=== PATIENT | male | born 1975 | race Caucasian/White ===

== ENCOUNTER → 2016-07-11 | Outpatient (REF) | payer BC ==
[2016-07-11 18:10] LABS: ANION GAP 16.3 MEQ/L (3-15); MAGNESIUM* 1.9 mg/dL (1.6-2.3)
== END ==
LOC: LAB 16:20
PROVIDERS: ATTEND Family Medicine
DX: E87.6 Hypokalemia (principal)
CPT/HCPCS: 80048; 83735

== ENCOUNTER → 2016-07-26 | Outpatient (REF) | payer BC ==
[2016-07-26 16:51] LABS: ANION GAP 16.4 MEQ/L (3-15)
== END ==
LOC: LAB 15:50
PROVIDERS: ATTEND Family Medicine
DX: R25.2 Cramp and spasm (principal)
CPT/HCPCS: 80048